=== PATIENT | female | born 1945 | race Caucasian/White ===

== ENCOUNTER 2021-11-02 13:45 | Outpatient (CLI) | payer MEDICARE, SELFPAY ==
--- NOTE | ~2021-11-02 | US_ITS ---
EXAMINATION: US art doppler w erica ARREAGA DATE: 11/02/2021 15:13 INDICATION: Peripheral vascular disease with claudication TECHNIQUE: Segmental pressures and plethysmographic and Doppler waveforms of the brachial and lower e xtremity arteries were obtained. COMPARISON: None. FINDINGS: Right and left brachial artery pressures of 191 mm Hg and 197 mm Hg, respectively, are concordant (no rmal difference <= 30 mmHg). The right high thigh pressure index is 0.50 (normal > 1.2). The left hig h thigh pressure index was unable to be obtained due to inability to occlude the vessels. The right ankle-brachial index (JANA) is unable to be a assessed due to inability to occlude the vesse ls at the right ankle (normal >= 0.9-1). The right great toe-brachial index (TBI) is 0.06 (normal >= 0.6-0.8). The right lower extremity segmental pressure gradients are normal (normal gradients <= 20-3 0 mmHg between adjacent levels on the same leg or the same levels on the two legs). Arterial waveform s are biphasic with parvus and tardus waveforms with delayed upstrokes and broadened systolic peaks t hroughout the arteries of the right lower limb. The left JANA is 0.75. The left TBI is 0.38. The left lower extremity segmental pressure gradients are normal. Arterial waveforms are biphasic with brisk systolic upstrokes throughout the arteries of the left lower limb. IMPRESSION: 1. Arterial occlusive disease to the right lower limb with severely decreased right high thigh pressu re index and toe brachial index and with broadened systolic peaks and delayed upstrokes throughout th e arteries of the right lower limb suggesting a significant stenosis above level of the high thigh. 2. Arterial occlusive disease to the left lower limb with mildly decreased left JANA and TBI. Reviewed, dictated and finalized at location A. IMPRESSION: 1. Arterial occlusive disease to the right lower limb with severely decreased r ight high thigh pressure index and toe brachial index and with broadened systol ic peaks and delayed upstrokes throughout the arteries of the right lower limb suggesting a significant stenosis above level of the high thigh. 2. Arterial occlusive disease to the left lower limb with mildly decreased left JANA and TBI.
== END 2021-11-02 13:46 | disposition home or self-care (01) ==
PROVIDERS: PCP Family Medicine Adolescent Medicine; Visit Provider Family Medicine Adolescent Medicine
DX: I73.9 Peripheral vascular disease, unspecified (principal)
CPT/HCPCS: 93923